=== PATIENT | female | born 1970 ===

== ENCOUNTER 2019-05-11 06:51 | Day surgery (SDC) | payer OTHER | END 2019-05-11 19:32 | disposition home or self-care (01) | LOC: CIR.AMB 06:51 → ADM 07:30 → CIR.AMB 12:30 | DX: M77.12 Lateral epicondylitis, left elbow (principal) ==

== ENCOUNTER 2020-07-03 09:59 | Outpatient (CLI) | payer OTHER | END 2020-07-03 10:29 | disposition home or self-care (01) | LOC: RX STUDY 09:59 | PROVIDERS: ATTEND Internal Medicine Gastroenterology | DX: R13.12 Dysphagia, oropharyngeal phase (principal) ==

== ENCOUNTER 2023-09-23 05:35 | Day surgery (SDC) | payer OTHER ==
[2023-09-17 10:00] LABS: INR 1.2; PARTIAL THROMBOPLASTIN TIME 29.6 SECONDS (22.0-34.0); PROTHROMBIN TIME 12.4 SECONDS (9.0-11.5)
[~2023-09-23 05:35] MED LIST: FAMOTIDINE; PANTOPRAZOLE
[2023-09-23] MEDS ORDERED: FAMOTIDINE/PF 20 MG/2 ML VIAL IV ONE (08:30)
[2023-09-23] MEDS ORDERED: CEFAZOLIN SODIUM 1,000 MG VIAL IV ONE (09:00)
[2023-09-23] MEDS ORDERED: LIDOCAINE HCL 1%/EPINEPHRINE 20ML VIAL IJ ONE (10:00)
[2023-09-23] MEDS ORDERED: BUPIVACAINE HCL 30 ML VIAL IJ ONE (10:00)
[2023-09-23] MEDS ORDERED: KETOROLAC TROMETHAMINE 30 MG VIAL IV ONE (10:00)
[2023-09-23] MEDS ORDERED: KETOROLAC TROMETHAMINE 30 MG VIAL IM ONE (10:00)
[2023-09-23] MEDS ORDERED: MORPHINE SULFATE 4 MG/ML VIAL IV ONE (10:45)
== END 2023-09-23 12:15 | disposition home or self-care (01) ==
LOC: CIR.AMB 05:35
PROVIDERS: ATTEND Orthopaedic Surgery
DX: M24.821 Other specific joint derangements of right elbow, not elsewhere classified (principal); M66.231 Spontaneous rupture of extensor tendons, right forearm; M19.90 Unspecified osteoarthritis, unspecified site; H52.209 Unspecified astigmatism, unspecified eye; H52.10 Myopia, unspecified eye